=== PATIENT | female | born 1965 | race Caucasian/White ===

== ENCOUNTER 2018-05-28 08:10 | Outpatient (CLI) | payer OTHER ==
--- NOTE | 2018-05-28 09:22 | BD ---
BONE DENSITOMETRY: Indication: 52-year-old female for post-menopausal osteoporosis screening. Lumbar Spine: BMD (g/cm2) L1 0.879 T-Score: -1.0 L2 0.983 T-Score: -0.4 L3 0.954 T-Score: -1.2 L4 0.929 T-Score: -1.2 L1-L4 0.935 T-Score: -1.0 Femoral Neck: 0.696 T-Score: -1.4 Total Femur: 0.864 T-Score: -0.6 Impression: 1. Bone mineral density of the lumbar spine within normal range. 2. Bone mineral density of the femoral neck indicates osteopenia. 3. 10-year fracture risk: Major osteoporotic fracture 5.8%, hip fracture 0.4%. POS: [facility]
== END 2018-05-28 08:11 | disposition home or self-care (01) ==
LOC: BICMAMMO 08:10
PROVIDERS: ATTEND Nurse Practitioner Family
DX: Z12.31 Encounter for screening mammogram for malignant neoplasm of breast (principal); M85.89 Other specified disorders of bone density and structure, multiple sites; R92.1 Mammographic calcification found on diagnostic imaging of breast
CPT/HCPCS: 77063; 77067; 77080

== ENCOUNTER 2020-04-08 14:29 | Outpatient (CLI) | payer OTHER ==
--- NOTE | 2020-04-08 15:44 | MMO ---
Bilateral MAMMO Bilat Screen [facility]. CLINICAL HISTORY: Patient is 54 years old and is seen for screening. The patient has the following family history of breast cancer: mother, at age 83. The patient has no personal history of cancer. The patient has a history of bilateral Breast reduction in 2013. VIEWS: The views performed were: bilateral craniocaudal with tomosynthesis; bilateral mediolateral oblique with tomosynthesis; and bilateral exaggerated craniocaudal. FILMS COMPARED: The present examination has been compared to a prior imaging study performed at [facility] on 05/28/2018. This study has been interpreted with the assistance of computer-aided detection. MAMMOGRAM FINDINGS: The breasts are heterogeneously dense, which could obscure a lesion on mammography. New cluster of microcalcifications anterior lower left breast. In the right breast, there are no suspicious masses, calcifications or areas of architectural distortion. IMPRESSION: FINDING IN THE LEFT BREAST REQUIRES ADDITIONAL EVALUATION. SPOT MAGNIFICATION VIEW(S) ARE RECOMMENDED. THE RESULTS OF THIS EXAM WERE SENT TO THE PATIENT. ACR BI-RADS Category 0 - Incomplete: Need additional imaging evaluation. [facility] will notify the patient of the need for additional imaging services. MAMMOGRAPHY NOTE: 1. A negative mammogram report should not delay a biopsy if a dominant of clinically suspicious mass is present. 2. Approximately 10% to 15% of breast cancers are not detected by mammography. 3. Adenosis and dense breasts may obscure an underlying neoplasm. Reported by: LOVE SHERWOOD MD Electonically Signed: [id number]
== END 2020-04-08 14:30 | disposition home or self-care (01) ==
LOC: BICMAMMO 14:29
PROVIDERS: ATTEND Nurse Practitioner Family
DX: Z12.31 Encounter for screening mammogram for malignant neoplasm of breast (principal); R92.0 Mammographic microcalcification found on diagnostic imaging of breast; Z80.3 Family history of malignant neoplasm of breast; Z98.890 Other specified postprocedural states
CPT/HCPCS: 77063; 77067

== ENCOUNTER 2021-07-06 10:58 | Day surgery (SDC) | payer BC, SELFPAY ==
[~2021-07-06 10:58] MED LIST: Cyclopentolate 1% Opth Drop 2 ML BOT FS SCH; EPINEPHrine 0.3 MG in Ophthalmic Irrigation Solution 500 ML IRR SCH; Phenylephrine 2.5% Ophth Soln 5 ML BOT FS SCH
[2021-07-06] MEDS ORDERED: Fluorouracil 100 MG, Enoxaparin Sodium 25 MG, EPINEPHrine 0.3 MG in Ophthalmic Irrigati... IRR SCH (11:15)
[2021-07-06] MEDS ORDERED: Phenylephrine 2.5% Ophth Soln 5 ML BOT ONE (12:14)
[2021-07-06] MEDS ORDERED: Cyclopentolate 1% Opth Drop 2 ML BOT ONE (12:14)
[2021-07-06 13:35] LABS: SARS-CoV-2 NAA Rapid Test Not Detected (NotDetected)
[2021-07-06] MEDS ORDERED: Midazolam HCl 2 mg/2 ml Vial ONE (14:06)
[2021-07-06] MEDS ORDERED: Fentanyl 100 MCG/2 ML VIAL ONE (14:06)
[2021-07-06] MEDS ORDERED: Lidocaine 4% PF 5 ML AMP ONE (14:25)
[2021-07-06] MEDS ORDERED: Enoxaparin Sodium 30 MG/0.3 ML SYRINGE ONE (14:25)
[2021-07-06] MEDS ORDERED: CEFAZOLIN 1 GM VIAL ONE (14:25)
[2021-07-06] MEDS ORDERED: Bupivacaine PF 0.75% SDV 10 ML ONE (14:25)
[2021-07-06] MEDS ORDERED: PROPOFOL 200 MG/20 ML VIAL ONE (14:25)
[2021-07-06] MEDS ORDERED: Maxitrol 0.1% Opth Oint 3.5 GM TUBE ONE (14:25)
[2021-07-06] MEDS ORDERED: Lidocaine 1% PF 5 ML VIAL ONE (14:25)
[2021-07-06] MEDS ORDERED: Triamcinolone 40 MG/ML VIAL ONE (14:25)
[2021-07-06] MEDS ORDERED: Meperidine HCl/PF 25 MG/ML VIAL ONE (14:30)
== END 2021-07-06 16:05 | disposition home or self-care (01) ==
LOC: SDC 10:58
PROVIDERS: ATTEND Ophthalmology Retina Specialist
PROC: 08T53ZZ Resection of Left Vitreous, Percutaneous Approach (ICD-10-PCS; principal; 2021-07-06)
DX: H33.012 Retinal detachment with single break, left eye (principal); E78.00 Pure hypercholesterolemia, unspecified; Z79.82 Long term (current) use of aspirin; Z20.822 Contact with and (suspected) exposure to COVID-19
CPT/HCPCS: 67025; J0171; J0690; J1650; J2175; J2250; J2704; J3010; J3301; J3490; J9190; U0002

== ENCOUNTER 2022-05-08 12:13 | Outpatient (CLI) | payer BC | END 2022-05-08 12:14 | disposition home or self-care (01) | LOC: BICMAMMO 12:13 | PROVIDERS: ATTEND Nurse Practitioner Family | DX: Z12.31 Encounter for screening mammogram for malignant neoplasm of breast (principal); Z98.890 Other specified postprocedural states; Z80.3 Family history of malignant neoplasm of breast | CPT/HCPCS: 77063; 77067 ==

== ENCOUNTER 2023-01-16 16:20 | Outpatient (CLI) | payer BC | END 2023-01-16 16:21 | disposition home or self-care (01) | LOC: SCSRAD 16:20 | PROVIDERS: ATTEND Nurse Practitioner Family | DX: Z77.22 Contact with and (suspected) exposure to environmental tobacco smoke (acute) (chronic) (principal) | CPT/HCPCS: 71046 ==

== ENCOUNTER 2025-06-14 23:15 | Emergency (ER) | payer BC ==
[2025-06-15 00:03] LABS: #Basophils 0.09 10x3/uL (0.0-0.2); #Eosinophils 0.25 10x3/uL (0.0-0.7); #Monocytes 0.72 10x3/uL (0.11-0.59); #Neutrophils 8.87 10x3/uL (1.40-6.50); %Basophils 0.7 % (0.0-1.0); %Eosinophils 2.0 % (0.0-10.0); %Lymphocytes 19.2 % (21.0-51.0); %Monocytes 5.8 % (0.0-10.0); %Neutrophils 72.0 % (42.0-75.0); Hematocrit 36.6 % (36.0-47.0); Hemoglobin 12.0 g/dL (12.0-16.0); Mean Corpuscular Hemoglobin 28.2 pg (27.0-31.0); Mean Corpuscular Volume 85.9 fL (78.0-98.0); Platelet Count 318 10x3/uL (130-400); Red Blood Cell (RBC) Count 4.26 mill/uL (4.20-5.40); White Blood Cell (WBC) Count 12.34 10x3/uL (4.8-10.8)
[2025-06-15 00:24] LABS: ALT (SGPT) 54 U/L (Less than 34); AST (SGOT) 111 U/L (11-34); Albumin 4.3 g/dL (3.1-4.5); Alkaline Phosphatase 86 U/L (40-110); Anion Gap 15 mmol/L (10-20); BUN (Urea Nitrogen) 25 mg/dL (9.8-20.1); Bilirubin, Total 0.4 mg/dL (0.3-1.2); Calc. Creatinine Clearance 0 mL/min (70-130); Calcium 9.7 mg/dL (7.8-10.44); Carbon Dioxide 21 mmol/L (22-29); Chloride 106 mmol/L (98-107); Globulin 3.2 g/dL (2.4-3.5); Glucose 125 mg/dL (70-105); Lipase 30 U/L (8-78); Potassium 3.7 mmol/L (3.5-5.1); Sodium 138 mmol/L (136-145)
[2025-06-15 02:15] LABS: Bacteria/HPF None Seen HPF (None Seen); CAUTI Indications for Culture Pelvic or flank pain; Glucose, Urine (Dipstick) Normal (Negative); Leukocyte Negative Leu/uL (Negative); Protein, Urine (Dipstick) Negative (Neg-Trace); RBC/HPF None Seen HPF (0-3); Specific Gravity, Urine 1.032 (1.002-1.036); WBC/HPF None Seen HPF (0-3)
[2025-06-15 02:18] LABS: Urine Culture Reflex No No
== END 2025-06-15 02:35 | disposition home or self-care (01) ==
LOC: ERS 23:15
DX: R10.11 Right upper quadrant pain (principal); R74.01 Elevation of levels of liver transaminase levels; R73.03 Prediabetes; Z79.84 Long term (current) use of oral hypoglycemic drugs; Z87.891 Personal history of nicotine dependence
CPT/HCPCS: 36415; 74177; 80053; 81001; 83690; 84484; 85025; 93005